=== PATIENT | female | born 1960 | race Caucasian/White ===

== ENCOUNTER 2022-03-16 02:28 | Emergency (ER) | payer BC ==
[~2022-03-16] VITALS: Ht 165.1 cm; Wt 65.8 kg
--- NOTE | 2022-03-16 02:45 | NUR ---
PT BIBS C/O RIGHT FLANK PAIN RADIATING TO RIGHT LOWER ABDOMEN X1DAY. DENIES N/V. PATIENT SEEN BY MD AT TRIAGE. IN BED 06 AMBULATORY WITH NON LABORED BREATHING.
--- NOTE | 2022-03-16 02:45 | NUR ---
PT UNABLE TO PROVIDE URINE AT THIS TIME.
[2022-03-16] MEDS ORDERED: KETOROLAC TROMETHAMINE 15 MG/ML VIAL ONE ×2 (02:46→06:36)
--- NOTE | 2022-03-16 02:55 | NUR ---
RAC #[id number] S/L; PATENT AND INTACT. BLOOD COLLECTED AND SENT TO LAB
[2022-03-16 02:59] LABS: BASOPHILS # (AUTO) 0.1 K/uL (0.0-0.2); BASOPHILS % (AUTO) 0.7 % (0.0-2.0); EOSINOPHILS % (AUTO) 2.9 % (0.0-6.0); HEMATOCRIT 38 % (33-45); LYMPHOCYTES # (AUTO) 2.5 K/uL (0.8-4.8); LYMPHOCYTES % (AUTO) 23.9 % (20.0-44.0); MEAN CORPUSCULAR HGB CONC 34 g/dl (31.0-36.0); MEAN CORPUSCULAR VOLUME 84 fL (82-100); MONOCYTES % (AUTO) 9.3 % (2.0-12.0); NEUTROPHILS # (AUTO) 6.6 K/uL (1.8-8.9); NEUTROPHILS % (AUTO) 63.2 % (43.0-81.0); PLATELET COUNT (AUTO) 319 K/uL (150-450); RED BLOOD CELL COUNT(AUTO) 4.59 MIL/uL (4.0-5.2); WHITE BLOOD COUNT (AUTO) 10.4 K/uL (4.3-11.0)
[2022-03-16] MEDS ORDERED: KETOROLAC TROMETHAMINE INJ 30 MG/ML VIAL IV ONE ×2 (03:00→06:30)
--- NOTE | 2022-03-16 03:00 | NUR ---
PT TAKEN TO CT VIA [facility]
--- NOTE | 2022-03-16 03:09 | NUR ---
PT RETURNED TO ER BED [address]
[2022-03-16] MEDS ORDERED: MORPHINE SULFATE INJ 2 MG/ML DISP.SYRIN ONE (03:43)
[2022-03-16] MEDS ORDERED: MORPHINE SULFATE INJ 4 MG/ML DISP.SYRIN ONE ×2 (03:43→07:26)
[2022-03-16] MEDS ORDERED: MORPHINE SULFATE INJ 2 MG/ML DISP.SYRIN IV ONE ×2 (04:00→07:30)
[2022-03-16 04:12] LABS: CALCIUM, SERUM 9.8 mg/dL (8.5-10.1); POTASSIUM 3.9 mmol/L (3.5-5.1)
--- NOTE | 2022-03-16 05:05 | NUR ---
URINE COLLECTED AND SENT TO LAB
[2022-03-16] MEDS ORDERED: TAMS-12 PO (05:45)
[2022-03-16] MEDS ORDERED: [UNRECOGNIZED DRUG - CODE] PO (05:45)
[2022-03-16 06:05] LABS: BILIRUBIN,URINE NEGATIVE (NEGATIVE); COLOR,URINE YELLOW (YELLOW); LEUKOCYTE ESTERASE ,URINE NEGATIVE (NEGATIVE); NITRITE, URINE NEGATIVE (NEGATIVE); PROTEIN,URINE NEGATIVE (NEGATIVE); UGLUCOSE NEGATIVE (NEGATIVE); UROBILINOGEN,URINE 0.2 EU/dL (0.2)
--- NOTE | 2022-03-16 06:29 | NUR ---
CALLED [facility] TO F/U WITH CT REPORT & SPOKE TO CARLY "RADIOLOGIST HAS 6 IMAGES TO READ AHEAD OF PT"
[2022-03-16 07:19] VITALS: BP 121/60
--- NOTE | 2022-03-16 07:19 | NUR ---
Patient discharged to home in stable condition. Written and verbal after care instructions given. Patient verbalizes understanding of instruction.
[2022-03-16 07:56] LABS: BACTERIA,URINE None seen /HPF (None Seen); SQUAMOUS EPITHELIAL CELL,UR Rare /HPF (None Seen); URINE AMORPHOUS URATE Moderate /HPF (None Seen); WBC,URINE NONE SEEN /HPF (0-3)
== END 2022-03-16 07:35 | disposition home or self-care (01) ==
LOC: ER 02:30
DX: N20.0 Calculus of kidney (principal); Z79.899 Other long term (current) drug therapy
CPT/HCPCS: 36415; 74176; 80048; 81001; 85025; 96374; 96375; 96376; 99285; J1885 ×2; J2270 ×3